=== PATIENT | male | born 1975 | race Caucasian/White ===

== ENCOUNTER 2022-11-04 06:03 | Inpatient (IN) ==
[2022-11-04 07:15] LABS: Basophils # (auto) 0.02 K/uL (0-0.2); Basophils % (auto) 0.4 %; Eosinophils # (auto) 0.07 K/uL (0-0.50); Eosinophils % (auto) 1.6 %; Hematocrit (blood only) 39.4 % (42.0-52.0); Immature Granulocytes # (auto) 0.02 K/uL (0.01-0.20); Immature Granulocytes % (auto) 0.4 %; Lymphocytes # (auto) 1.25 K/uL (1.2-3.4); Lymphocytes % (auto) 27.8 %; Mean Corpuscular Hgb Conc 35.5 g/dL (32.0-36.0); Mean Corpuscular Volume 81.7 fL (80.0-100.0); Mean Platelet Volume 9.6 fL (9.4-12.4); Monocytes # (auto) 0.42 K/uL (0.11-0.59); Monocytes % (auto) 9.4 %; Neutrophils # (auto) 2.71 K/uL (1.40-6.50); Neutrophils % (auto) 60.4 %; Platelet Count 165 K/uL (130-400); RDW Coefficient of Variation 12.7 % (11.5-14.5); RDW Standard Deviation 37.5 fL (36.4-46.3); Red Blood Count 4.82 M/uL (4.70-6.10); White Blood Count 4.49 K/ul (4.8-10.8)
[2022-11-04 07:17] LABS: Albumin Globulin Ratio 1.4 (0.9-2); BUN Creatinine Ratio 14.7 (10-20); Bilirubin,Total 0.4 mg/dl (0.2-1.0); Calcium 9.3 mg/dl (8.6-10.3); Creatinine Clr Calc Pharmacy 97.3 ml/min; Est GFR (Non-African American) 87.1 ml/min; Globulin 2.8 gm/dl (2.5-4.0); Potassium 4.2 mmol/L (3.5-5.1); Total Protein 6.8 gm/dl (6.0-8.3)
--- NOTE | 2022-11-04 07:20 | Emergency Department Note ---
History of Present Illness General Chief complaint: Chest Pain Stated complaint: CHEST PAIN Time Seen by Provider: 11/04/22 07:03 History of Present Illness Maximum Pain Intensity: 3 47-year-old male with no significant past medical history presents emergency department for evaluation of chest pain. Patient states he was woken from sleep around midnight last evening with central chest pain. He describes it as a pressure, "heat" feeling in his chest. He states it did radiate down his left arm. It has since been intermittent in nature with episodes lasting from 2 to 30 minutes. He reports a history of heartburn and thought it was secondary to this. He took Tums and drink a glass of cold water which usually resolves his symptoms but had no improvement prompting evaluation. There are no alleviating or exacerbating symptoms. It is not related to exertion or positional changes. It is not pleuritic in nature. He denies associated shortness of breath, nausea/vomiting, abdominal pain. Denies recent cold-like symptoms including fever/chills, cough. Denies history of blood clots, recent travel/prolonged immobilization, lower extremity swelling, calf pain. He has been taking a lot of ibuprofen lately due to current sciatica flare. He denies previous personal cardiac history but notes family history of ND. Denies history of known hypertension or hyperlipidemia. He states his pain is currently subsided. Home Medications Medication Instructions Recorded Confirmed Type ibuprofen 200 mg tablet (Advil) 400 mg PO Q6H PRN Pain 11/04/22 11/04/22 History Allergies Allergy/AdvReac Type Severity Reaction Status Date / Time No Known Allergies Allergy Unverified 11/04/22 06:52 Past Med/Surg History Medical History (Updated 11/04/22 @ 12:24 by Vanessa Watkins PA-C) Acute ND Atherogenic dyslipidemia Benign essential hypertension Coronary artery disease Marijuana user Social History Smoking Status: Current some day smoker Hx Alcohol Use: Yes Alcohol type: beer Hx Substance Use: Yes Last Used Substance: Hours (ago) Last Used Substance Other:: Last night Communication Ability: Effective Scout Executive Required: No Beliefs That Will Affect Care: None Current Living Situation: Spouse Other Information That Helps Us Care for You: No Feels Safe at Home: Yes Safety Concerns: Feels Safe At This Time Assistive Devices: Glasses Physical Exam Vital Signs Vital Signs - 24 hr 11/04/22 06:07 11/04/22 06:25 11/04/22 06:23 Temperature 36.8 C Temperature Source Temporal Artery Scan Pulse Rate 70 67 67 Pulse Rate from SpO2 Sensor Respiratory Rate 20 15 Respiratory Effort / Characteristics Non-Labored Respiratory Depth Normal Blood Pressure 158/98 H Blood Pressure Mean 118 Pulse Oximetry 98 Oxygen Delivery Method Room Air Sepsis Recent Fever Within 48 Hours No Sepsis New/Unexplained Change in Mental Status N/A Sepsis Action Taken by Nursing No Action Required 11/04/22 06:28 11/04/22 06:30 11/04/22 07:40 Temperature Temperature Source Pulse Rate 65 58 L 79 Pulse Rate from SpO2 Sensor 59 L Respiratory Rate 21 20 19 Respiratory Effort / Characteristics Respiratory Depth Blood Pressure 175/111 H 169/106 H 147/110 H Blood Pressure Mean 132 127 122 Pulse Oximetry 96 99 97 Oxygen Delivery Method Room Air Room Air Room Air Sepsis Recent Fever Within 48 Hours Sepsis New/Unexplained Change in Mental Status Sepsis Action Taken by Nursing 11/04/22 07:00 11/04/22 07:00 11/04/22 07:30 Temperature Temperature Source Pulse Rate 56 L Pulse Rate from SpO2 Sensor 56 L Respiratory Rate 13 Respiratory Effort / Characteristics Respiratory Depth Blood Pressure 156/102 H 147/110 H Blood Pressure Mean 112 127 Pulse Oximetry 97 Oxygen Delivery Method Sepsis Recent Fever Within 48 Hours Sepsis New/Unexplained Change in Mental Status Sepsis Action Taken by Nursing 11/04/22 07:30 11/04/22 08:00 11/04/22 08:00 Temperature Temperature Source Pulse Rate 53 L 59 L Pulse Rate from SpO2 Sensor 53 L 59 L Respiratory Rate 11 L 14 Respiratory Effort / Characteristics Respiratory Depth Blood Pressure 172/116 H Blood Pressure Mean 142 Pulse Oximetry 96 99 Oxygen Delivery Method Sepsis Recent Fever Within 48 Hours Sepsis New/Unexplained Change in Mental Status Sepsis Action Taken by Nursing 11/04/22 08:22 11/04/22 08:22 11/04/22 08:27 Temperature Temperature Source Pulse Rate 65 53 L Pulse Rate from SpO2 Sensor 67 54 L Respiratory Rate 24 11 L Respiratory Effort / Characteristics Respiratory Depth Blood Pressure 152/96 H Blood Pressure Mean 117 Pulse Oximetry 100 99 Oxygen Delivery Method Sepsis Recent Fever Within 48 Hours Sepsis New/Unexplained Change in Mental Status Sepsis Action Taken by Nursing 11/04/22 08:27 11/04/22 08:30 07/01/23 08:30 Temperature Temperature Source Pulse Rate 56 L Pulse Rate from SpO2 Sensor 56 L Respiratory Rate 18 Respiratory Effort / Characteristics Respiratory Depth Blood Pressure 139/89 137/93 Blood Pressure Mean 97 103 Pulse Oximetry 99 Oxygen Delivery Method Sepsis Recent Fever Within 48 Hours Sepsis New/Unexplained Change in Mental Status Sepsis Action Taken by Nursing Constitutional: alert and oriented x3. no acute distress. HEENT: normocephalic, atraumatic. normal conjunctiva.PERRLA. EOM's grossly intact. TMs pearly saab without effusion. Pharynx pink without exudate. Tonsils nonenlarged. Mucus membranes moist Neck: neck is supple, nontender. Respiratory: lungs are clear to auscultation without wheezes, rhonchi, or rales bilaterally. equal chest rise. normal respiratory effort, no accessory muscle use. Cardiovascular: normal heart sounds without murmur. regular rate and rhythm. GI: abdomen is soft, nontender. No palpable masses. No rebound tenderness or guarding. MSK: Moves all 4 extremities spontaneously Peripheral vascular: extremities warm and well perfused with palpable pulses. No peripheral edema Psych:appropriate mood and affect. Course Administered Medications Sodium Chloride (Nss 1000ml) 1,000 mls @ 75 mls/hr IV .[id number] [facility] Stop: 12/04/22 09:59 Last Admin: 11/04/22 11:34 Dose: 75 mls/hr Documented By: MARYANN Miscellaneous (Icu Protocol For Hyperglycemia) 1 each N/A ACHS [facility] Stop: 11/06/22 11:29 Last Admin: 11/04/22 11:34 Dose: Not Given Documented By: MARYANN Nitroglycerin (Nitroglycerin Sl 0.4 Mg/Tab Tab) 0.4 mg SL Q5M PRN PRN Reason: Chest Pain Stop: 12/04/22 08:06 Last Admin: 11/04/22 08:22 Dose: 0.4 mg Documented By: Admin: 11/04/22 08:12 Dose: 0.4 mg Documented By: Admin: 11/04/22 08:07 Dose: 0.4 mg Documented By: RUBEN Discontinued Medications Aspirin (Aspirin 81 Mg Chew) 324 mg PO NOW STA Stop: 11/04/22 07:42 Last Admin: 11/04/22 07:48 Dose: 324 mg Documented By: RUBEN Atropine Sulfate (Atropine Sulfate 0.1 Mg/Ml 10ml Syr) Confirm Administered Dose 1 mg IV .[facility] Stop: 11/04/22 08:56 Last Admin: 11/04/22 10:31 Dose: Not Given Documented By: MARYANN Fentanyl Citrate (Fentanyl Citrate Pf 100 Mcg/2 Ml Vial) Confirm Administered Dose 100 mcg .ROUTE .[facility] Stop: 11/04/22 08:40 Last Admin: 11/04/22 10:31 Dose: Not Given Documented By: MARYANN Heparin Sodium (Porcine) (Heparin (Porcine) 1000 Unit/Ml 10 Ml (Turret Press Operator Use Only)) Confirm Administered Dose 10,000 units .ROUTE .[facility] Stop: 11/04/22 08:39 Last Admin: 11/04/22 10:30 Dose: Not Given Documented By: MARYANN Heparin Sodium/Sodium Chloride (Heparin In Nss Infusion 1000 Unit/500 Ml (2 U/Ml) Bag) Confirm Administered Dose 4,000 units IV .[facility] Stop: 11/04/22 08:40 Last Admin: 11/04/22 10:31 Dose: Not Given Documented By: MARYANN Midazolam HCl (Midazolam Hcl 1 Mg/Ml 2ml Vial) Confirm Administered Dose 2 mg .ROUTE .[facility] Stop: 11/04/22 08:39 Last Admin: 11/04/22 10:30 Dose: Not Given Documented By: MARYANN Morphine Sulfate (Morphine Sulfate 2 Mg/Ml Carp) 2 mg IV NOW STA Stop: 11/04/22 08:16 Last Admin: 11/04/22 08:21 Dose: 2 mg Documented By: EMMETT Morphine Sulfate (Morphine Sulfate 2 Mg/Ml Carp) 2 mg IV NOW STA Stop: 11/04/22 08:24 Last Admin: 11/04/22 08:23 Dose: 2 mg Documented By: RUBEN Nicardipine HCl (Nicardipine Hcl Inj 2.5 Mg/Ml 10 Ml Amp) Confirm Administered Dose 25 mg .ROUTE .[facility] Stop: 11/04/22 08:39 Last Admin: 11/04/22 10:31 Dose: Not Given Documented By: MARYANN Nitroglycerin/Dextrose (Nitroglycerin/D5w 100mcg/Ml 20ml Syr) Confirm Administered Dose 2,000 mcg .ROUTE .[facility] Stop: 11/04/22 08:40 Last Admin: 11/04/22 10:31 Dose: Not Given Documented By: MARYANN Ticagrelor (Ticagrelor 90 Mg Tab) Confirm Administered Dose 180 mg .ROUTE .[facility]- [facility] ONE Stop: 11/04/22 09:16 Last Admin: 11/04/22 09:43 Dose: 180 mg Documented By: GAVINO Medical Decision Making Differential Diagnosis Cardiac ischemia, aortic dissection, pulmonary embolism, pneumothorax, pneumonia, pericarditis, myocarditis, esophageal rupture, GERD, cholecystitis, pancreatitis, musculoskeletal, as well as other pathologies. Laboratory Data Attestation: I reviewed the patient's lab results. 11/04/22 06:30 11/04/22 06:30 Lab Results 11/04/22 11/04/22 11/04/22 Range/Units 06:30 06:30 06:30 WBC 4.49 L (4.8-10.8) K/ul RBC 4.82 (4.70-6.10) M/uL Hgb 14.0 (14.0-18.0) g/dl Hct 39.4 L (42.0-52.0) % MCV 81.7 (80.0-100.0) fL MCH 29.0 (25.0-34.0) pg MCHC 35.5 (32.0-36.0) g/dL RDW Std Deviation 37.5 (36.4-46.3) fL RDW Coeff of Felecia 12.7 (11.5-14.5) % Plt Count 165 (130-400) K/uL MPV 9.6 (9.4-12.4) fL Immature Gran % (Auto) 0.4 % Neut % (Auto) 60.4 % Lymph % (Auto) 27.8 % Andrews % (Auto) 9.4 % Eos % (Auto) 1.6 % Baso % (Auto) 0.4 % Neut # (Auto) 2.71 (1.40-6.50) K/uL Lymph # (Auto) 1.25 (1.2-3.4) K/uL Andrews # (Auto) 0.42 (0.11-0.59) K/uL Eos # (Auto) 0.07 (0-0.50) K/uL Baso # (Auto) 0.02 (0-0.2) K/uL Immature Gran # (Auto) 0.02 (0.01-0.20) K/uL PT 10.7 (9.0-12.0) Seconds INR 1.0 (0.9-1.1) APTT 29.9 (21.0-31.0) Seconds PTT Ratio 1.1 Activ Coag Time Kaolin (94-140) SECONDS Sodium 138 (136-145) mmol/L Potassium 4.2 (3.5-5.1) mmol/L Chloride 107 (98-107) mmol/L Carbon Dioxide 26 (21-32) mmol/L Anion Gap 5 (3-11) BUN 15 (6-23) mg/dl Creatinine 1.02 (0.6-1.4) mg/dl Est Cr Clr Drug Dosing 97.3 ml/min Est GFR ( Amer) 101.0 ml/min Est GFR (Non-Af Amer) 87.1 ml/min BUN/Creatinine Ratio 14.7 (10-20) Glucose 104 H (70-99(Fasting)) mg/dl Calcium 9.3 (8.6-10.3) mg/dl Total Bilirubin 0.4 (0.2-1.0) mg/dl AST 17 (13-39) U/L ALT 15 (7-52) U/L Alkaline Phosphatase 60 (34-104) U/L Troponin I High Sens 50.4 H* (0-20) pg/ml Total Protein 6.8 (6.0-8.3) gm/dl Albumin 4.0 (3.4-5.0) gm/dl Globulin 2.8 (2.5-4.0) gm/dl Albumin/Globulin Ratio 1.4 (0.9-2) SARS-CoV-2, RNA, NAAT (NEGATIVE) 11/04/22 11/04/22 11/04/22 Range/Units 08:25 09:05 09:30 WBC (4.8-10.8) K/ul RBC (4.70-6.10) M/uL Hgb (14.0-18.0) g/dl Hct (42.0-52.0) % MCV (80.0-100.0) fL MCH (25.0-34.0) pg MCHC (32.0-36.0) g/dL RDW Std Deviation (36.4-46.3) fL RDW Coeff of Felecia (11.5-14.5) % Plt Count (130-400) K/uL MPV (9.4-12.4) fL Immature Gran % (Auto) % Neut % (Auto) % Lymph % (Auto) % Andrews % (Auto) % Eos % (Auto) % Baso % (Auto) % Neut # (Auto) (1.40-6.50) K/uL Lymph # (Auto) (1.2-3.4) K/uL Andrews # (Auto) (0.11-0.59) K/uL Eos # (Auto) (0-0.50) K/uL Baso # (Auto) (0-0.2) K/uL Immature Gran # (Auto) (0.01-0.20) K/uL PT (9.0-12.0) Seconds INR (0.9-1.1) APTT (21.0-31.0) Seconds PTT Ratio Activ Coag Time Kaolin 360 H 233 H (94-140) SECONDS Sodium (136-145) mmol/L Potassium (3.5-5.1) mmol/L Chloride (98-107) mmol/L Carbon Dioxide (21-32) mmol/L Anion Gap (3-11) BUN (6-23) mg/dl Creatinine (0.6-1.4) mg/dl Est Cr Clr Drug Dosing ml/min Est GFR ( Amer) ml/min Est GFR (Non-Af Amer) ml/min BUN/Creatinine Ratio (10-20) Glucose (70-99(Fasting)) mg/dl Calcium (8.6-10.3) mg/dl Total Bilirubin (0.2-1.0) mg/dl AST (13-39) U/L ALT (7-52) U/L Alkaline Phosphatase (34-104) U/L Troponin I High Sens (0-20) pg/ml Total Protein (6.0-8.3) gm/dl Albumin (3.4-5.0) gm/dl Globulin (2.5-4.0) gm/dl Albumin/Globulin Ratio (0.9-2) SARS-CoV-2, RNA, NAAT NEGATIVE (NEGATIVE) Imaging Data My Impression: CXR per my interpretation without focal consolidation, pleural effusion, or pneumothorax Radiologist's Impression: Chest X-Ray 11/04/22 06:53 XR chest 1V not portable HISTORY: Chest pain, nonspecific COMPARISON: None. FINDINGS: The lungs are clear. Cardiac silhouette is normal in size. No pleural effusions. No pneumothorax. IMPRESSION: No acute process. ACT 112: Negative or not required by law. Electronically signed by: Juvenal Briones M.D. 11/04/2022 8:14 AM MDM Narrative 47-year-old male who presents emergency department for evaluation of substernal chest pain. Review of pertinent visits and past medical history performed. Vital signs in ED demonstrate hypertensive otherwise within normal limits, afebrile. EKG demonstrates normal sinus rhythm at a rate of 58 bpm without e vidence of ischemic changes, ST abnormalities. No previous to compare. IV access was established and labs were obtained. CBC without leukocytosis or acute anemia. CMP without significant electrolyte abnormalities. Initial high- sensitivity troponin elevated at 50. Chest x-ray unremarkable. On initial exam, patient is nontoxic-appearing in no acute distress. No respiratory distress, maintaining normal O2 saturations on room air. Lungs CTA. Abdomen is benign. Remainder physical exam unremarkable. Patient was placed on cardiac monitoring and at time my interpretation demonstrates normal sinus rhythm at rate 66bpm. He declined need for pain medication initially. Upon initial reevaluation 745a, patient remains stable with mild return in symptoms. Rated 5/10. He was given dose of 324mg chewed aspirin. Repeat EKG performed and demonstrates no new changes and no evidence of ischemic ST segment changes. He was updated on all exam findings and given elevated troponin I recommended admission to hospital for further cardiac work-up. Patient was agreeable to this. Case was discussed with hospitalist for admission. Reevaluation 808: patient reports pain is increasing in severity now 8/10 "worse than it's ever been". Continues substernally. Vital signs within normal limits. ED attending, Dr. Abraham to evaluate patient at bedside with me. He was ordered sublingual Nitroglycerin. Dr. Abraham consulted cook dessert refractive surgeon Dr. Cervantes who agreed to come in and evaluate patient at bedside. Reeval 812a: pain not improved with nitroglycerin. He was given additional dose and ordered 2mg morphine. Vital signs demonstrate hypertensive. He remained hemodynamically stable. Repeat EGK demonstrates now ST elevations in inferior leads. Heart alert was called although cook dessert Dr. Cervantes was already on way in. In interim, while waiting for cardiology team, patient did have improved chest pain and senior environmental consultant did demonstrate resolution of ST elevations. Patient will be going to cardiac fish hatchery laborer for intervention. Impression & Plan Acute ND Discharge Plan Visit Data Chief Complaint: Chest Pain Stated Complaint: CHEST PAIN ED Provider: Nixon Abraham ED Midlevel Provider: Vanessa Watkins Discharge Problem: Acute ND Patient Disposition: Admitted As Inpatient Discharge Instructions Interventions: ED Discharge Assessment Last Done: 11/04/22 08:45
[2022-11-04 07:39] LABS: Troponin I High Sensitivity 50.4 pg/ml (0-20)
[2022-11-04] MEDS ORDERED: ASPIRIN 81 MG CHEW PO STA (07:41)
[2022-11-04 07:48] LABS: Partial Thromboplastin Ratio 1.1; Partial Thromboplastin Time 29.9 Seconds (21.0-31.0); Prothrombin Time 10.7 Seconds (9.0-12.0)
[2022-11-04] MEDS: NITROGLYCERIN SL 0.4 MG/TAB TAB SL PRN ×3 (08:07→08:22)
[2022-11-04] MEDS ORDERED: MoRPHine SULFATE 2 MG/ML CARP IV STA ×2 (08:15→08:23)
--- NOTE | 2022-11-04 08:15 | XRay Report ---
XR chest 1V not portable HISTORY: Chest pain, nonspecific COMPARISON: None. FINDINGS: The lungs are clear. Cardiac silhouette is normal in size. No pleural effusions. No pneumot horax. IMPRESSION: No acute process. ACT 112: Negative or not required by law. Electronically signed by: Juvenal Briones M.D. 11/04/2022 8:14 AM
[2022-11-04] MEDS ORDERED: MIDAZOLAM HCL 1 MG/ML 2ML VIAL ONE (08:38)
[2022-11-04] MEDS ORDERED: niCARdipine HCL INJ 2.5 MG/ML 10 ML AMP ONE (08:38)
[2022-11-04] MEDS ORDERED: HEPARIN (PORCINE) 1000 UNIT/ML 10 ML (CATH LAB USE ONLY) ONE (08:38)
[2022-11-04] MEDS ORDERED: NITROGLYCERIN/D5W 100MCG/ML 20ML SYR ONE (08:39)
[2022-11-04] MEDS ORDERED: fentaNYL citrate PF 100 MCG/2 ML VIAL ONE (08:39)
[2022-11-04] MEDS ORDERED: ATROPINE SULFATE 0.1 MG/ML 10ML SYR IV ONE (08:55)
--- NOTE | 2022-11-04 09:11 | Emergency Department Note ---
ED Visit Note I saw this patient in conjunction with Vanessa, my PA. His first 2 EKGs did not show any definite ischemic changes, I was concerned that his T waves looked a little hyperdynamic potentially but there is no old EKG for comparison his pain had resolved. There is no significant change from EKG#1to EKG #2. troponin was elevated at 50 so we consulted medicine for admission. At that point he was feeling well but then he started having chest pain again I went and evaluated him he said it was 8 out of 10 and much more severe, I did give him nitrogl ycerin and ordered up to 3 and I called talk to Dr. Cervantes who is on for heart alert/cardiology. He said he would come by and see the patient. The repeat EKG did show ST segment elevations inferiorly with reciprocal changes consistent with inferior MO/STEMI that were clearly different than the first 2 EKGs. in light of this, I did also call the heart alert at that point but the senior clinical study manager was already on the way in. The patient did receive 3 nitros he also received morphine 2 mg IV x2, his pressure tolerated this well. The cath team and Dr. Baez did promptly arrive. In the interim the patient started feeling better and on the monitor his ST segments came down. He will be going to the Discharging Machine Operator for intervention and likely stent. Total critical care time30 minutes Due to the patient's chest pain, evolutionary changes on EKG now showing a STEMI, discussion with the senior clinical study manager and the hospitalist, frequent reevaluation medications, I have personally spent greater than 30 minutes of critical care time in the direct management of this patient. This includes bedside care, interpretation of diagnostic studies, and testing, discussion with consultants, patient, and family members, and other required patient management activities. This 30 minutes is in excess of all separately billable procedures. Diagnosis Acute STEMI .
[2022-11-04] MEDS ORDERED: TICAGRELOR 90 MG TAB ONE (09:15)
[2022-11-04] MEDS ORDERED: ATROPINE SULFATE 0.1 MG/ML 10ML SYR IV PRN (09:48)
[2022-11-04] MEDS ORDERED: ONDANSETRON INJ 2 MG/ML 2 ML VIAL IV PRN (09:48)
--- NOTE | 2022-11-04 10:10 | Pre Anesthesia Assessment ---
Date of Service November 04, 2022 Pre Sedation Assessment Vital Signs Temp Pulse Resp BP Pulse Ox O2 Del Method 11/04/22 08:30 56 L 18 99 11/04/22 08:30 137/93 11/04/22 08:27 139/89 11/04/22 08:27 53 L 11 L 99 11/04/22 08:22 65 24 100 11/04/22 08:22 152/96 H 11/04/22 08:00 59 L 14 99 11/04/22 08:00 172/116 H 11/04/22 07:30 53 L 11 L 96 11/04/22 07:30 147/110 H 11/04/22 07:00 56 L 13 97 11/04/22 07:00 156/102 H 11/04/22 07:40 79 19 147/110 H 97 Room Air 11/04/22 06:30 58 L 20 169/106 H 99 Room Air 11/04/22 06:28 65 21 175/111 H 96 Room Air 11/04/22 06:23 67 15 11/04/22 06:25 67 11/04/22 06:07 36.8 C 70 20 158/98 H 98 Room Air Cardiovascular RRR, no murmur, no edema Respiratory normal respiratory effort, lungs clear to auscultation Pre-Sedation Airway Assessment Smoking Status: Current some day smoker mallampati 2 ASA 4 Notes The planned sedation has been discussed with the patient. Informed Consent was obtained. I have identified the patient, determined the appropriateness of sedation and have assessed the patient immediately prior to the procedure. All medicine(s) and interventions are by my order.
--- NOTE | 2022-11-04 10:13 | Post Anesthesia Assessment ---
Date of Service November 04, 2022 Post Sedation Assessment Vital Signs Temp Pulse Resp BP Pulse Ox O2 Del Method 11/04/22 08:30 56 L 18 99 11/04/22 08:30 137/93 11/04/22 08:27 139/89 11/04/22 08:27 53 L 11 L 99 11/04/22 08:22 65 24 100 11/04/22 08:22 152/96 H 11/04/22 08:00 59 L 14 99 11/04/22 08:00 172/116 H 11/04/22 07:30 53 L 11 L 96 11/04/22 07:30 147/110 H 11/04/22 07:00 56 L 13 97 11/04/22 07:00 156/102 H 11/04/22 07:40 79 19 147/110 H 97 Room Air 11/04/22 06:30 58 L 20 169/106 H 99 Room Air 11/04/22 06:28 65 21 175/111 H 96 Room Air 11/04/22 06:23 67 15 11/04/22 06:25 67 11/04/22 06:07 36.8 C 70 20 158/98 H 98 Room Air Recovery Score Activity: Moves 4 extremities Respiration: Deep Breath/Cough Circulation: +/-20% PreAnes Value Consciousness: Fully Awake Oxygen Saturation: > 92% On Room Air Discharge Sedation Level of Care: Fast Track Phase II Post Sedation Plan On clinical assessment, the patient appears to have tolerated the sedation without complications. Patient is recovering as anticipated. Patient will continue to be monitored by nursing and may be discharged when sedation discharge criteria are met per below protocol. Upon Completions of procedure up to 15 minutes continue every 5 minute vital signs and the P.A.R. score; then discharge to a Phase I or Fast Track to Phase II per the following guidelines: * Discharge Patient to appropriate Phase II area if PAR is 8 or greater or return to pre- procedure baseline. The post - procedure orders will be as directed. * If PAR score is less than 8 or not return to pre-procedure baseline then patient will follow Phase I monitoring till PAR is reached for Phase II. The Phase I may be done in procedure room or may call to secure a Phase I area. * If naloxone or flumazenil are used for reversal, hold in Phase I for continued monitoring from when last reversal dose was given for a minimum of 60 minutes or longer pending the nurse and/or physician discretion of patient condition before discharge to Phase II. Please call the Sedation Physician to re-evaluate and complete post-note for discharge to Phase II area. Do NOT discharge from procedure sedation or Phase 1 until post- sedation evaluation note is complete by procedure /sedation MD Sedation Discharge Instructions to be given to the patient at discharge to home. [facility] Procedure Codes (Charges) Indication for Procedure Indication for procedure: STEMI Sedation/Anesthesia Procedure 1: Sedation/Anesthesia: 22101 Mod Sedation by the same physician;Init15 Min Child Age 5 & Up (initial 15 min, start 0854) Total Sedation Time (minutes): 44 Procedure 2: Sedation/Anesthesia: 99129 Mod Sedation by the same physician; Ea [id number] Minutes (additional 29 min, end 0938) Total Sedation Time (minutes): 44
--- NOTE | 2022-11-04 10:14 | History & Physical Report ---
Date of Service November 04, 2022 Assessment & Plan (1) Acute GA: Plan: Patient presents to the hospital on account of chest pain/pressure Initial EKGs did not show any changes however the third EKG showed elevated of ST in inferior leads. He was emergently taken to the cardiac cath and subsequently stented x2 LAD and RCA. 2D echo has been ordered, result pending Appreciate cardiology Patient was monitored in the ICU. Patient does not have a PCP and 1 will be arranged upon discharge. Plan Continue hospitalization Full code DVT prophylaxis SCDs Admission and Anticipated Discharge Date Admission Date: November 04, 2022 History of Present Illness Chief Complaint: Chest pain Primary Care Provider: NO PCP Is a 47-year-old male with no significant past medical history who presents to the hospital today on account of chest pain/pressure. According to the patient initially the pressure radiated to left shoulder. Although when I saw him in the emergency department he said the pain no longer radiated reports there was a constant pressure on his chest. Initial 2 EKGs did not show any ST elevation or changes however initial troponin was 50. The in the emergency department, when I was in the room he said the pressure got worse and a repeat EKG was ordered which showed ST elevation in the inferior leads. Heart code was called and cardiology was notified. Patient was taken to the cardiac cath for emergency catheterization and subsequent drug-eluting stent x2. He will be taken to ICU post cath. Of note, patient does not have a primary care doctor and has not seen a doctor in a long time. Vital signs currently stable, blood pressure 137/93, saturating well on room air. Allergies Allergy/AdvReac Type Severity Reaction Status Date / Time No Known Allergies Allergy Unverified 11/04/22 06:52 Home Medications Medication Instructions Recorded Confirmed Type ibuprofen 200 mg tablet (Advil) 400 mg PO Q6H PRN Pain 11/04/22 11/04/22 History Past Med/Surg History Social History Smoking Status: Current some day smoker Feels Safe at Home: Yes Review of Systems Review of Systems: All systems reviewed are negative, apart from the ones contained in the history. Physical Exam Physical Exam: The patient is awake, alert and oriented 3, well developed and well nourished, normocephalic and atraumatic, lying in bed and in no acute distress. HEENT--PERRL, EOMI, mucous membranes and oropharynx mildly dry Neck--supple. No JVD. No bruits. Thyroid normal, trachea midline, no adenopa thy. Heart--normal S1 and S2. No murmurs, rubs or gallops. Lungs--clear bilaterally, no respiratory distress, no accessory muscle use. Abdomen--normal bowel sounds and soft. Mild epigastric and left sided abdominal pain Extremities--no cyanosis or clubbing. No edema. Dermatologic--normal skin turgor, normal color, no abnormal lymph nodes, no rash. Neurologic--cranial nerves II through XII grossly intact. Rheumatologic--normal range of motion. Psychiatric--normal affect. Results & Data Results & Data Vital Signs (Past 12 Hours) Vital Signs Temp Pulse Resp BP Pulse Ox O2 Del Method 11/04/22 08:30 56 L 18 99 11/04/22 08:30 137/93 11/04/22 08:27 139/89 11/04/22 08:27 53 L 11 L 99 11/04/22 08:22 65 24 100 11/04/22 08:22 152/96 H 11/04/22 08:00 59 L 14 99 11/04/22 08:00 172/116 H 11/04/22 07:30 53 L 11 L 96 11/04/22 07:30 147/110 H 11/04/22 07:00 56 L 13 97 11/04/22 07:00 156/102 H 11/04/22 07:40 79 19 147/110 H 97 Room Air 11/04/22 06:30 58 L 20 169/106 H 99 Room Air 11/04/22 06:28 65 21 175/111 H 96 Room Air 11/04/22 06:23 67 15 11/04/22 06:25 67 11/04/22 06:07 98.2 F 70 20 158/98 H 98 Room Air Code Status & VTE Plan VTE Prophylaxis Plan VTE Prophylaxis will be ordered: Yes PG Care Time/CCT Total # of Minutes Spent Total Time Spent with Patient: Total time spent is greater than 50% in coordination of care (as documented) at patient's floor/unit and/or counseling patient: Coding Level of Care Code 40831 INT INP/OBS CARE 3/75MIN Diagnoses Acute GA I21.9 Time Spent (min) 75
--- NOTE | 2022-11-04 10:14 | Cardiac Catheterization ---
ACC Data: Model Builder Cardiac Status Clinical evaluation leading to the procedure CAD Presenation: STEMI Anginal Classification: CCS IV Heart Failure: No Cardiogenic Shock within 24 Hours: No Cardiac Arrest within 24 Hours: No Imaging Studies Past 6 Months: No Stress Studies Past 6 Months: No STEMI OR Non-STEMI Symptom Onset Date: 11/04/22 Symptom Onset Time: 08:13 Thrombolytics: No Coronary Anatomy Dominant: Right Left Main (% Stenosis): Normal LAD (% Stenosis): Proximal (50 to 70%) and Distal (Apical 95 to 99%) D1 (% Stenosis): Ostial (90%, small vessel) D2 (% Stenosis): Normal Circumflex (% Stenosis): Normal OM1 (% Stenosis): Proximal (70 to 80%) OM2 (% Stenosis): Proximal (95 to 99%, culprit lesion) RCA (% Stenosis): Proximal (40%), Mid (Diffuse less than 30%) and Distal (Focal 40 to 50%) R PDA (% Stenosis): Proximal (Tandem less than 40%) R PL1 (% Stenosis): Normal Diagnostic Physicians Name: Sahil Cervantes MD, PhD Closure Device Percutaneous Entry Location: Radial Closure Device: Radial Band Recommendations: Medical Therapy and/or Counseling and PCI without planned CABG PCI Indication: PCI for STEMI - Stable First Noted: Subsequent EKG Date: 11/04/22 Subsequent EKG Time: 08:13 Subsequent EKG (Fourth EKG) Lesion Segment Name: OM 2 Culprit Artery: Yes Stenosis Prior to Rx (%): 95 to 99% Chronic Total Occlusion: No Pre-Procedure MAGALY Flow: 2 Previously Treated Lesion: No Lesion Complexity: Non-High/Non-C Lesion Length (mm): 20 Thrombus Present: Yes Bifurcation Lesion: No Guidewire Across Lesion: Yes Lesion #2 Segment Name: Proximal OM1 Culprit Artery: No Stenosis Prior to Rx (%): 75 to 80% Chronic Total Occlusion: No Pre-Procedure MAGALY Flow: 3 Previously Treated Lesion: No Lesion Complexity: Non-High/Non-C Lesion Length (mm): 15 Thrombus Present: No Bifurcation Lesion: No Guidewire Across Lesion: Yes Intraprocedure Events Significant Disection: No Perforation: No Cardiac Cath Procedure Full Procedure Date November 04, 2022 Pre-Procedure Diagnosis Pre-Procedure Diagnosis: STEMI AUC Score AUC Score: 09 Post-Procedure Diagnosis Post-Procedure Diagnosis: Severe CAD and Successful PCI Procedure(s) Performed Procedure(s) Performed: Coronary Angiography, Drug Eluting Stent and Fractional Flow [place] [employer] Machine Helper Sahil Cervantes MD, PhD Estimated Blood Loss Estimated Blood Loss: <10 ml Medication(s) Medication(s): Fentanyl, Heparin, Lidocaine 1%, Nicardipine, Nitroglycerin and Versed Summary of Findings Brief description: Patient was brought to the cardiac catheterization suite where he was shaved and prepped in a sterile fashion. Sedated using IV Versed and fentanyl. Soft tissues of the right wrist were anesthetized using 2 mL of 1% Xylocaine. The right radial artery was accessed using a modified Seldinger technique and a 6 [place] radial artery glide sheath was placed. Patient was provided anticoagulation with IV heparin and antispasmodics including nitroglycerin and nicardipine. All catheters were advanced and exchanged over a 0.035 J-tip wire. Note: On arrival to the cardiac catheterization suite the patient had very low level of residual chest pain. However, this worsened during the preparation time and there were noted ST elevations on the monitor. Right coronary angiography was performed in orthogonal views using a 6 [place] JR4 guide catheter. Left coronary angiography was performed in orthogonal views using a 6 [place] EBU 3.0 guide catheter. We proceeded immediately to PCI. A BMW universal guidewire was advanced through the guide catheter and positioned distally in the OM 1. A second BMW reversal guidewire was advanced and positioned distally in the OM 2. Predilatation of the lesion in the OM 2 was performed using a 2.0 x 12 mm trek balloon up to 14 fernando. The lesion was then stented using a 2.25 x 22 mm Nathan drug-eluting stent initially at 12 fernando with a second inflation up to 14 fernando. The stent balloon was then removed. Lesion in the OM1 was then stented using a 2.5 x 18 mm Nathan drug-eluting stent inflated initially at 12 fernando then 14 fernando and finally at 16 fernando. The stent balloon was then removed. Rotary Drier angiography was performed. The BMW universal guidewire in the OM 2 was removed. The OM1 stent was postdilated in the mid and proximal portions using a 2.75 x 12 mm NC sprinter inflated to 12 fernando and 14 fernando respectively. A 2.5 x 8 mm Divide drug-eluting stent was advanced over the guidewire and positioned with its proximal edge just within the distal portion of the original stent and extending its distal edge over the small residual portion of the lesion. This was then deployed at 12 fernando. The overlapped segment was then inflated to 16 fernando. Therefore the most distal diameter of the stent frame was 2.5 mm in the most proximal portion of the stent drain was 2.8 mm. After removal of the balloon, the guidewire was removed and final angiographic evaluation was performed in orthogonal views. We decided to proceed with IFR analysis of the proximal LAD lesion. The Doppler wire was advanced through the guide catheter and positioned with the transducer just distal to the catheter tip. Pressures were equalized. The wire was then advanced down the LAD and positioned with the transducer distal to the lesion. After normal saline flush, IFR was sampled 3 times and recorded. The wire was then removed and final angiographic evaluation was performed to ensure no complications of guidewire passage. The guide catheter was then removed. ACT was checked and additional heparin was provided to ensure therapeutic anticoagulation. Patient was then provided with Brilinta 180 mg p.o. The radial artery sheath was removed and hemostasis was obtained using the TR band. At this point patient was hemodynamically stable, asymptomatic, and with resolution of his EKG changes. He was then transported to the ICU for further work-up and management. This ended the case. Coronary angiography findings: LMT-large caliber vessel bifurcating into LAD and circumflex. Diffuse mild disease. LAD-large caliber and transapical. Gives a small branching first diagonal which has ostial 90% stenosis. Gives a large septal branch as well as many additional smaller septal branches. It gives a medium caliber branching second diagonal which has mild disease. The proximal LAD has focal lesion spanning the ostium of the first diagonal which appears 50 to 70% narrowed. The midportion has mild diffuse disease. The distal LAD has diffuse mild luminal irregularities and at the apex there is a focal 95 to 99% stenosis. LCx-this is large caliber and nondominant. Travels in the AV groove where it gives a large multi-branching OM1. There is a long eccentric lesion of 70 to 80% beginning just after the ostium. The mid AV groove vessel has no significant disease and then it provides a medium to large caliber multi b ranching OM 2. This has a proximal to mid long stenosis of up to 95 to 99%. There is MAGALY II flow distal to this lesion and this is the culprit vessel. After the OM to the distal AV groove circumflex becomes much smaller providing an atrial branch and terminating distally in the AV groove. RCA-medium to large caliber and dominant vessel. Proximal diffuse up to 40% narrowing. Mid vessel with mild diffuse less than 30% narrowing. Distally there is a focal 40 to 50% narrowing occurring just before the bifurcation. The RCA bifurcates into a large PDA which has tandem up to 40% stenosis and into the posterolateral branch which has mild luminal irregularities. PCI of OM1 and OM 2- There is 0% residual stenosis in the OM1 and the OM 2 post PCI There is no evidence of dissection or perforation post PCI in the OM1 or the OM 2. There is MAGALY-3 flow in the OM1 and OM 2 post PCI IFR analysis of the LAD- 0.92, 0.93, 0.93. Therefore, this lesion is not hemodynamically significant. MAGALY-3 flow post IFR analysis No evidence of dissection or perforation post IFR analysis Summary: 1. Severe multivessel coronary disease as described. Culprit for ST elevation VA is the OM 2. 2. Successful PCI with implantation of 1 long drug-eluting stent to the OM 2 as well as 2 overlapped drug-eluting stents in the OM 1. 3. Angiographically borderline but hemodynamically insignificant LAD stenosis by IFR analysis. 4. Patient will be on dual antiplatelet therapy using aspirin 81 mg daily and Brilinta 90 mg p.o. twice daily for up to 1 to 2 years. 5. Patient will be initiated on guideline directed medical therapy for secondary prevention of coronary disease including; high intensity statin therapy, beta-jaiden, plus or minus TERESA inhibitor/ARB as indicated. Hemodynamics Rest Ao:: 151/91 mmHg Final Ao: 134/78 mmHg LV: Not performed Recommendations Recommendations: Medical Therapy and/or Counseling and PCI without planned CABG Radiation Exposure (mGy) 2187 mGy, fluoroscopy time 11.0 minutes Contrast (mls) 205 mL Anesthesia 1 mg IV Versed, 50 mcg IV fentanyl (start time 0854, end time 0938) Procedural Complication(s) None Disposition ICU I attest to the content of the Intraoperative Record and any orders documented therein. Any exceptions are noted below. [facility] Card Cath Procedure Codes Cardiac Catheterization Procedure 1: Cardiovascular Cath Procedures: 04294 Coronaries Procedure 2: Cardiovascular Cath Procedures: 48017 (Doppler) Pressure Wire (LAD) Stenting Procedure 1: Cardiovascular Stent Procedures: 19484 Perc transluminal revascularization of acute sub/total occl, aMI (OM 2) Procedure 2: Cardiovascular Stent Procedures: 47165 Ea addl coronary artery, branch or graft: ANABEL SINGH LD (OM1) PG Care Time/CCT Total # of Minutes Spent Total Time Spent with Patient: Total time spent is greater than 50% in coordination of care (as documented) at patient's floor/unit and/or counseling patient:
[2022-11-04 10:54] LABS: Basophils # (auto) 0.02 K/uL (0-0.2); Basophils % (auto) 0.3 %; Eosinophils # (auto) 0.02 K/uL (0-0.50); Eosinophils % (auto) 0.3 %; Hematocrit (blood only) 39.3 % (42.0-52.0); Hemoglobin 14.3 g/dl (14.0-18.0); Immature Granulocytes # (auto) 0.02 K/uL (0.01-0.20); Immature Granulocytes % (auto) 0.3 %; Lymphocytes # (auto) 0.94 K/uL (1.2-3.4); Lymphocytes % (auto) 12.3 %; Mean Corpuscular Hemoglobin 29.6 pg (25.0-34.0); Mean Corpuscular Hgb Conc 36.4 g/dL (32.0-36.0); Mean Corpuscular Volume 81.4 fL (80.0-100.0); Mean Platelet Volume 9.6 fL (9.4-12.4); Monocytes # (auto) 0.44 K/uL (0.11-0.59); Monocytes % (auto) 5.7 %; Neutrophils # (auto) 6.23 K/uL (1.40-6.50); Neutrophils % (auto) 81.1 %; Platelet Count 168 K/uL (130-400); RDW Coefficient of Variation 12.7 % (11.5-14.5); RDW Standard Deviation 37.2 fL (36.4-46.3); Red Blood Count 4.83 M/uL (4.70-6.10); White Blood Count 7.67 K/ul (4.8-10.8)
[2022-11-04 11:08] LABS: Estimated Average Glucose 103 mg/dl; Hemoglobin A1C 5.2 % (4.5-5.6)
--- NOTE | 2022-11-04 11:13 | Cardiology Consultation ---
Date of Consultation November 04, 2022 Assessment & Plan (1) Coronary artery disease: Multivessel. Status post KS with PCI. Mild to moderate residual disease. Blood pressure and heart rate were above target. Guideline directed medical therapy initiated with metoprolol tartrate, aspirin, and atorvastatin. We will obtain an echocardiogram to evaluate for abnormalities in structure or function. We will check a lipid panel and hemoglobin A1c to evaluate for occult risk factors. Additional recommendations pending results. (2) Atherogenic dyslipidemia: Patient is considered high risk. High intensity statin therapy was initiated using a atorvastatin 40 mg daily. Target LDL reduction will be greater than or equal to 50% of untreated baseline LDL. Await LDL measurement. (3) Benign essential hypertension: Blood pressure very high while he was under stress. Improved post PCI. He has been initiated on beta-jaiden. We will add TERESA inhibitor or angiotensin receptor jaiden as indicated by blood pressure, renal function, and LVEF post KS. (4) Acute KS: Culprit lesion appeared to be the OM 2. This was stented with a long drug- eluting stent. He also had significant disease in the OM1 which was stented with 2 overlapped drug-eluting stents. He will be on dual antiplatelet therapy with aspirin 81 mg daily and Brilinta 90 mg p.o. twice daily for up to a year. If he has intolerance to the Brilinta or it is unaffordable then we will convert Brilinta to clopidogrel prior to discharge. He will remain in the ICU for 24 hours post PCI. Assuming that he has no complications, he will be appropriate for transfer to the PCU after that time. And would likely be appropriate for discharge at 48 hours of hospitalization. History of Present Illness Reason for Consultation: ST elevation KS Attending Physician: Imani Garcia MD History of Present Illness Pleasant 47-year-old gentleman who has no prior cardiac history presented to the emergency department with complain of intermittent substernal chest pressure. His initial EKG was performed at 0619 and showed sinus bradycardia. 2 additional EKGs were performed at 0724 and 0746 each showing sinus bradycardia. His chest discomfort continued to be intermittent and somewhat fleeting. However, he then had more severe and persistent chest pain with an EKG at [address] elevations in the inferior and lateral leads. A "heart alert" was called in on my arrival the patient continued with severe chest pain although it had improved somewhat with some treatment in the emergency department. After discussion with the patient I recommended to him that we undergo diagnostic coronary angiography plus or minus PCI as indicated. The risks, benefits, and alternatives of the procedure were discussed in detail with the patient. Risks include but are not limited to; , stroke, KS, renal failure, adverse drug reaction, infection, bleed, and need for emergent surgery. Patient's questions were answered in full. He voiced understanding and wished to proceed with catheterization. The consent was signed and is in the chart. This was also discussed with his Adele who is at the bedside. Patient was taken to the cardiac catheterization suite where he underwent co ronary angiography demonstrating multivessel coronary disease. However, culprit lesion was felt to be the near total occlusion in the obtuse marginal branch #2. He underwent stenting of this vessel with a long drug-eluting stent. We also treated the lesion in the larger OM1 branch using 2 overlapped drug-eluting stents. Finally, the LAD lesion was angiographically borderline and therefore we performed IFR analysis which demonstrated this was not a hemodynamically significant lesion. He has now been admitted to the ICU. He has no further chest pain. It was noted that his blood pressure was over 200 systolic on arrival to the Agricultural Commodities Inspector. This has improved post PCI and initiation of therapy. Patient tells me he has strong family history of premature coronary disease. He also has not seen a physician in more than a year since he relocated from [place]. He denies any tobacco use. Allergies Allergy/AdvReac Type Severity Reaction Status Date / Time No Known Allergies Allergy Unverified 11/04/22 06:52 Home Medications Medication Instructions Recorded Confirmed Type ibuprofen 200 mg tablet (Advil) 400 mg PO Q6H PRN Pain 11/04/22 11/04/22 History Patient History Social History Smoking Status: Current some day smoker Hx Alcohol Use: Yes Alcohol type: beer Hx Substance Use: Yes Last Used Substance: Hours (ago) Last Used Substance Other:: Last night Communication Ability: Effective Civil Geotechnical Engineer Required: No Beliefs That Will Affect Care: None Current Living Situation: Spouse Other Information That Helps Us Care for You: No Feels Safe at Home: Yes Safety Concerns: Feels Safe At This Time Assistive Devices: Glasses Review of Systems Review of Systems: Negative except as per HPI Physical Exam Constitutional: WD/WN, vitals as above Eyes: Extraocular muscles intact, sclera are anicteric ENMT: Oral mucosa is pink moist and intact Neck: No JVD, thyromegaly, or bruits Respiratory: Clear to auscultation bilaterally. No wheezing, rhonchi, or rales Cardiovascular: Regular rate and rhythm. S4 gallop. Do not appreciate any rubs or murmurs. Musculoskeletal: no cyanosis or clubbing, extremities motor strength 5/5 Neurologic: Cognition is intact. Speech is fluent. No focal deficits. No tremor. Psychiatric: A+Ox3, euthymic affect Results & Data Vital Signs (Past 12 Hours) Vital Signs Temp Pulse Pulse Resp BP BP Pulse Ox 11/04/22 10:30 59 L 12 122/85 95 11/04/22 10:15 62 18 134/83 96 11/04/22 10:00 36.5 C 66 14 135/86 99 11/04/22 08:30 56 L 18 99 11/04/22 08:30 137/93 11/04/22 08:27 139/89 11/04/22 08:27 53 L 11 L 99 11/04/22 08:22 65 24 100 11/04/22 08:22 152/96 H 11/04/22 08:00 59 L 14 99 11/04/22 08:00 172/116 H 11/04/22 07:30 53 L 11 L 96 11/04/22 07:30 147/110 H 11/04/22 07:00 56 L 13 97 11/04/22 07:00 156/102 H 11/04/22 07:40 79 19 147/110 H 97 11/04/22 06:30 58 L 20 169/106 H 99 11/04/22 06:28 65 21 175/111 H 96 11/04/22 06:23 67 15 11/04/22 06:25 67 11/04/22 06:07 36.8 C 70 20 158/98 H 98 O2 Del Method 11/04/22 10:30 Room Air 11/04/22 10:15 Room Air 11/04/22 10:00 Room Air 11/04/22 08:30 11/04/22 08:30 11/04/22 08:27 11/04/22 08:27 11/04/22 08:22 07/01/23 08:22 11/04/22 08:00 11/04/22 08:00 11/04/22 07:30 11/04/22 07:30 11/04/22 07:00 11/04/22 07:00 11/04/22 07:40 Room Air 11/04/22 06:30 Room Air 11/04/22 06:28 Room Air 11/04/22 06:23 11/04/22 06:25 11/04/22 06:07 Room Air PG Care Time/CCT Total # of Minutes Spent Total Time Spent with Patient: Total time spent is greater than 50% in coordination of care (as documented) at patient's floor/unit and/or counseling patient: 74 minutes of critical care time spent in initial evaluation, examination, review of records, discussion with the patient, his spouse, and the care team. Additionally, this includes time for formulation and implementation of a plan of care and all associated documentation. This time is exclusive of time spent for the procedure. Coding Level of Care Code 83496 CRITICAL CARE 1ST 30-74M Diagnoses Coronary artery disease I25.10 Atherogenic dyslipidemia E78.5 Benign essential hypertension I10 Acute KS I21.9 Time Spent (min) 74
[2022-11-04] MEDS: SODIUM CHLORIDE 0.9% 1000ML 1,000 ML IV SCH (11:34)
[2022-11-04] MEDS: ICU Protocol for HYPERglycemia SCH ×3 (11:34→20:05)
--- NOTE | 2022-11-04 11:35 | Critical Care Consultation ---
Date of Consultation November 04, 2022 Assessment & Plan (1) Benign essential hypertension: (2) Atherogenic dyslipidemia: (3) Coronary artery disease: (4) Acute IN: (5) Marijuana user: Plan Attending: Dr. Ingram Impression: 47-year-old male who presented with chest pain and found to have acute IN with multivessel disease. Taken to the cardiac catheterization lab for PCI with 3 drug-eluting stents placed. Patient loaded on Brilinta and then started on aspirin 81 mg p.o. daily as well as Brilinta twice daily which she will need for up to 1 year. Patient with no recurrent chest pain. Family history of cardiac disease but no personal history other than some blood pr essure issues. No other acute problems. Recommendations: Reason Critically Ill: Acute myocardial infarction Neuro - [facility] ICU: Alert and oriented x4 Cardiac - Acute IN: * Culprit lesion appeared to be the OM 2. This was stented with a long drug- eluting stent. He also had significant disease in the OM1 which was stented with 2 overlapped drug-eluting stents. * He will be on dual antiplatelet therapy with aspirin 81 mg daily and Brilinta 90 mg p.o. twice daily for up to a year. * If he has intolerance to the Brilinta or it is unaffordable then we will convert Brilinta to clopidogrel prior to discharge. * Further management per cardiology * Add a magnesium level to earlier labs * Follow CBC and BMP tomorrow CAD: * Patient currently not on any home medications * Start metoprolol tartrate 25 mg p.o. twice daily * Atorvastatin 40 mg p.o. daily * Aspirin 81 mg p.o. daily * Follow-up with cardiology on discharge Benign hypertension: * Metoprolol tartrate 25 mg p.o. twice daily * Patient will need outpatient follow-up with cardiology * Continue to monitor on telemetry Respiratory - * No acute respiratory complaints * Chest x-ray with no evidence of cardiopulmonary disease * Maintain SaO2 greater than 90%. GI - * Okay to resume heart healthy diet RENAL/LYTES - * NSS at 75 mL/h. Can discontinue fluids once patient is tolerating diet - * No issues * Follow ins and outs per critical care protocol ENDO - * No history of diabetes mellitus * Random glucose is 104 HEME - * No acute bleeding with cardiac catheterization * Hemoglobin is 14.3 ID - * No fever chills or sweats. No recent illness. No recent travel out of the country. LINES/IV ACCESS - * Peripheral IV is in place. No indication for central line DVT PROPHYLAXIS - * Patient is on heparin drip per weight-based protocol * Continue with Brilinta twice daily as well as aspirin 81 mg p.o. daily CCT: 45 minutes minutes independent of any procedures Thank you for including us in the care of this patient. Please refer to Dr. Ingram's addendum for further recommendations. History of Present Illness Attending Physician: Imani Garcia MD History of Present Illness Attending: Dr. Ingram This is a 47-year-old male that recently moved here from [place]. He has no significant past medical history. He presented with chest pain and was found to have multivessel disease. He was taken to the cardiac catheterization lab. Culprit lesion appeared to be the OM 2. This was stented with a long drug- eluting stent. He also had significant disease in the OM1 which was stented with 2 overlapped drug-eluting stents. He was started on dual antiplatelet therapy with aspirin 81 mg daily and Brilinta.patient denies any current chest pain. He has no shortness of breath. He denies any pain into his neck shoulder or arm. He has no acute complaints at all. Patient's is present with him at this time. They report that they had just talked about starting an exercise regimen. Patient is slightly overweight with a BMI of 29.5 kg/m. Is slightly hypertensive. He is aware the lifestyle modification is important at this time and committed to initiate changes. Patient has no tobacco abuse history. He does however smoke marijuana. He does not vape. No other previous cardiac issues. Patient does not have a primary care physician. Medical cafe attendant is suggested. Allergies Allergy/AdvReac Type Severity Reaction Status Date / Time No Known Allergies Allergy Unverified 11/04/22 06:52 Home Medications Medication Instructions Recorded Confirmed Type ibuprofen 200 mg tablet (Advil) 400 mg PO Q6H PRN Pain 11/04/22 11/04/22 History Patient History Medical History (Updated 11/04/22 @ 11:52 by Johnathan Meza PA-C) Acute IN Atherogenic dyslipidemia Benign essential hypertension Coronary artery disease Marijuana user Social History Smoking Status: Current some day smoker Hx Alcohol Use: Yes Alcohol type: beer Hx Substance Use: Yes Last Used Substance: Hours (ago) Last Used Substance Other:: Last night Communication Ability: Effective Wool Cleaner Required: No Beliefs That Will Affect Care: None Current Living Situation: Spouse Other Information That Helps Us Care for You: No Feels Safe at Home: Yes Safety Concerns: Feels Safe At This Time Assistive Devices: Glasses Review of Systems Review of Systems: A total of 10 systems was reviewed and is negative other than as listed in the HPI Physical Exam Physical Exam: GENERAL : No acute distress EYES: No icterus, gaze conjugate NOSE: No evidence of epistaxis MOUTH: No lesions or candidiasis NECK: Supple LUNGS: CTA B/L, no wheezes, rales or rhonchi HEART: Regular, rate controlled ABDOMEN: Soft, NT, ND, BS Present EXTREMITIES: No LE edema, pedal pulses intact NEURO: A&OX3 Results & Data Results & Data Vital Signs (Past 12 Hours) Vital Signs Temp Pulse Pulse Resp BP BP Pulse Ox 11/04/22 11:00 73 15 144/88 H 97 11/04/22 10:45 66 13 123/85 97 11/04/22 10:30 59 L 12 122/85 95 11/04/22 10:15 62 18 134/83 96 11/04/22 10:00 36.5 C 66 14 135/86 99 11/04/22 08:30 56 L 18 99 11/04/22 08:30 137/93 11/04/22 08:27 139/89 11/04/22 08:27 53 L 11 L 99 11/04/22 08:22 65 24 100 11/04/22 08:22 152/96 H 11/04/22 08:00 59 L 14 99 11/04/22 08:00 172/116 H 11/04/22 07:30 53 L 11 L 96 11/04/22 07:30 147/110 H 11/04/22 07:00 56 L 13 97 11/04/22 07:00 156/102 H 11/04/22 07:40 79 19 147/110 H 97 11/04/22 06:30 58 L 20 169/106 H 99 11/04/22 06:28 65 21 175/111 H 96 11/04/22 06:23 67 15 11/04/22 06:25 67 11/04/22 06:07 36.8 C 70 20 158/98 H 98 O2 Del Method 11/04/22 11:00 Room Air 11/04/22 10:45 Room Air 11/04/22 10:30 Room Air 11/04/22 10:15 Room Air 11/04/22 10:00 Room Air 11/04/22 08:30 11/04/22 08:30 11/04/22 08:27 11/04/22 08:27 11/04/22 08:22 11/04/22 08:22 11/04/22 08:00 11/04/22 08:00 11/04/22 07:30 11/04/22 07:30 11/04/22 07:00 11/04/22 07:00 11/04/22 07:40 Room Air 11/04/22 06:30 Room Air 11/04/22 06:28 Room Air 11/04/22 06:23 11/04/22 06:25 11/04/22 06:07 Room Air Critical Care Results & Data Vital Signs (Past 12 Hours) Vital Signs Temp Pulse Pulse Resp BP BP Pulse Ox 11/04/22 11:00 73 15 144/88 H 97 11/04/22 10:45 66 13 123/85 97 11/04/22 10:30 59 L 12 122/85 95 11/04/22 10:15 62 18 134/83 96 11/04/22 10:00 36.5 C 66 14 135/86 99 11/04/22 08:30 56 L 18 99 11/04/22 08:30 137/93 11/04/22 08:27 139/89 11/04/22 08:27 53 L 11 L 99 11/04/22 08:22 65 24 100 11/04/22 08:22 152/96 H 11/04/22 08:00 59 L 14 99 11/04/22 08:00 172/116 H 11/04/22 07:30 53 L 11 L 96 11/04/22 07:30 147/110 H 11/04/22 07:00 56 L 13 97 11/04/22 07:00 156/102 H 11/04/22 07:40 79 19 147/110 H 97 11/04/22 06:30 58 L 20 169/106 H 99 11/04/22 06:28 65 21 175/111 H 96 11/04/22 06:23 67 15 11/04/22 06:25 67 11/04/22 06:07 36.8 C 70 20 158/98 H 98 O2 Del Method 11/04/22 11:00 Room Air 11/04/22 10:45 Room Air 11/04/22 10:30 Room Air 11/04/22 10:15 Room Air 11/04/22 10:00 Room Air 11/04/22 08:30 11/04/22 08:30 11/04/22 08:27 11/04/22 08:27 11/04/22 08:22 11/04/22 08:22 11/04/22 08:00 11/04/22 08:00 11/04/22 07:30 11/04/22 07:30 11/04/22 07:00 11/04/22 07:00 11/04/22 07:40 Room Air 11/04/22 06:30 Room Air 11/04/22 06:28 Room Air 11/04/22 06:23 11/04/22 06:25 11/04/22 06:07 Room Air Lab & Micro Results (Past 24 Hours) RBC 4.83 M/uL (4.70-6.10) 11/04/22 WBC 7.67 K/ul (4.8-10.8) 11/04/22 Hgb 14.3 g/dl (14.0-18.0) 11/04/22 Hct 39.3 % (42.0-52.0) L 11/04/22 MCV 81.4 fL (80.0-100.0) 11/04/22 MCH 29.6 pg (25.0-34.0) 11/04/22 MCHC 36.4 g/dL (32.0-36.0) H 11/04/22 RDW Standard Deviation 37.2 fL (36.4-46.3) 11/04/22 RDW Coefficient of Variation 12.7 % (11.5-14.5) 11/04/22 Plt Count 168 K/uL (130-400) 11/04/22 MPV 9.6 fL (9.4-12.4) 11/04/22 Neutrophils (%) (Auto) 81.1 % 11/04/22 Lymphocytes (%) (Auto) 12.3 % 11/04/22 Monocytes # (Auto) 0.44 K/uL (0.11-0.59) 11/04/22 Eosinophils # (Auto) 0.02 K/uL (0-0.50) 11/04/22 Immature Granulocyte % (Auto) 0.3 % 11/04/22 Neutrophils # (Auto) 6.23 K/uL (1.40-6.50) 11/04/22 Lymphocytes # (Auto) 0.94 K/uL (1.2-3.4) L 11/04/22 Monocytes # (Auto) 0.44 K/uL (0.11-0.59) 11/04/22 Eosinophils # (Auto) 0.02 K/uL (0-0.50) 11/04/22 Basophils # (Auto) 0.02 K/uL (0-0.2) 11/04/22 Immature Granulocyte # (Auto) 0.02 K/uL (0.01-0.20) 3 Na 138 mmol/L (136-145) 11/04/22 K 4.2 mmol/L (3.5-5.1) 11/04/22 Cl 107 mmol/L (98-107) 11/04/22 CO2 26 mmol/L (21-32) 11/04/22 Anion Gap 5 (3-11) 11/04/22 BUN 15 mg/dl (6-23) 11/04/22 Creatinine 1.02 mg/dl (0.6-1.4) 11/04/22 Estimated GFR ( Amer) 101.0 ml/min 11/04/22 Estimated GFR (Non-Af Amer) 87.1 ml/min 11/04/22 BUN/Creatinine Ratio 14.7 (10-20) 11/04/22 Glu 104 mg/dl (70-99(Fasting)) H 11/04/22 Ca 9.3 mg/dl (8.6-10.3) 11/04/22 Total Bilirubin 0.4 mg/dl (0.2-1.0) 11/04/22 AST 17 U/L (13-39) 11/04/22 ALT 15 U/L (7-52) 11/04/22 Alkaline Phosphatase 60 U/L (34-104) 11/04/22 TP 6.8 gm/dl (6.0-8.3) 11/04/22 Albumin 4.0 gm/dl (3.4-5.0) 11/04/22 Globulin 2.8 gm/dl (2.5-4.0) 11/04/22 Albumin/Globulin Ratio 1.4 (0.9-2) 11/04/22 Calcium Level 9.3 mg/dl (8.6-10.3) 11/04/22 06:30 Prothromb Time International Ratio 1.0 (0.9-1.1) 11/04/22 06:3 0 Diagnostic Findings (Past 24 Hours) Chest X-Ray 11/04/22 06:53 XR chest 1V not portable HISTORY: Chest pain, nonspecific COMPARISON: None. FINDINGS: The lungs are clear. Cardiac silhouette is normal in size. No pleural effusions. No pneumothorax. IMPRESSION: No acute process. ACT 112: Negative or not required by law. Electronically signed by: Juvenal Briones M.D. 11/04/2022 8:14 AM I & O Totals 24 Hours 11/03/22 11/04/22 11/05/22 06:59 06:59 06:59 Output Total 650 / 650 Balance -650 / -650 Cumulative 11/04/22 06:03 thru 11/04/22 10:00 Output Total 650 Balance -650 RT Ventilator Mngmt (Last Documented) Ventilator Ordered Settings Respiratory Rate 15 11/04/22 11:00 Ventilator - PT Measurements Respiratory Rate 15 Coding Level of Care Code 12084 CRITICAL CARE 1ST 30-74M Diagnoses Benign essential hypertension I10 Atherogenic dyslipidemia E78.5 Coronary artery disease I25.10 Acute IN I21.9 Marijuana user F12.90 Time Spent (min) 45
[2022-11-04 13:02] LABS: Magnesium 1.9 mg/dl (1.7-2.4)
[2022-11-04] MEDS ORDERED: MAGNESIUM SULFATE / D5W 1 GM/100 ML BAG IV ONE (14:00)
[2022-11-04] MEDS: METOPROLOL TARTRATE 25 MG TAB PO SCH (20:04)
[2022-11-04] MEDS: TICAGRELOR 90 MG TAB PO SCH (20:04)
--- NOTE | 2022-11-04 23:47 | XCELERA ---
[id number]
[2022-11-05] MEDS: SODIUM CHLORIDE 0.9% 1000ML 1,000 ML IV SCH (00:48)
[2022-11-05 05:10] LABS: Hematocrit (blood only) 40.9 % (42.0-52.0); Hemoglobin 14.5 g/dl (14.0-18.0); Mean Corpuscular Hemoglobin 29.7 pg (25.0-34.0); Mean Corpuscular Hgb Conc 35.5 g/dL (32.0-36.0); Mean Corpuscular Volume 83.6 fL (80.0-100.0); Mean Platelet Volume 9.3 fL (9.4-12.4); Platelet Count 164 K/uL (130-400); RDW Standard Deviation 39.4 fL (36.4-46.3); Red Blood Count 4.89 M/uL (4.70-6.10); White Blood Count 5.79 K/ul (4.8-10.8)
[2022-11-05] MEDS: ACETAMINOPHEN 325 MG TAB PO PRN ×3 (05:16→20:17)
[2022-11-05 05:28] LABS: Phosphorus 3.5 mg/dl (2.5-4.9)
--- NOTE | 2022-11-05 07:21 | Critical Care Progress Note ---
Date of Service November 05, 2022 Assessment & Plan (1) Acute IN: (2) Benign essential hypertension: (3) Atherogenic dyslipidemia: Plan Impression: 47-year-old male with acute coronary syndrome status post drug- eluting stent. He is doing well clinically. Recommendations: 1. Acute coronary syndrome: Currently on aspirin and Brilinta. Echocardiogram completed. EF of 55 to 60% without regional wall motion abnormalities. No valvular abnormalities. Mild concentric LVH. Patient will require cardiac rehab. 2. Hypertension: Continue metoprolol. 3. Hyperlipidemia: Continue Lipitor. Patient's critical care issues have resolved. Critical care will sign off. Disposition per primary and cardiology. Please call if we can be of additional assistance Admission and Anticipated Discharge Date Admission Date: November 04, 2022 Subjective Patient seen and examined. EMR reviewed. Discussed with critical care bedside nurse. Patient is doing well this morning. He denies any chest pain or palpitations. No pain at his cardiac catheterization site. He denies nausea or vomiting. No swelling in his lower extremities. He denies fevers chills night sweats or other constitutional symptoms. Review of Systems Review of Systems: All systems reviewed & are unremarkable except as noted in Subjective Physical Exam Constitutional: WD/WN, vitals as above Neck: trachea midline, no thyromegaly Respiratory: normal respiratory effort, lungs clear to auscultation Cardiovascular: RRR, no murmur, no edema Gastrointestinal (Abdomen): normal bowel sounds, soft, nontender, no hepatosplenomegaly Musculoskeletal: Extremities: extremities normal to inspection Skin: no rashes, warm and dry Neurologic: Nonfocal exam Lymphatic: no cervical lymphadenopathy Results & Data Results & Data Vital Signs (Past 12 Hours) Vital Signs Pulse Resp BP Pulse Ox O2 Del Method 11/05/22 07:11 58 L 11/05/22 07:00 58 L 12 97 11/05/22 07:00 101/70 11/05/22 06:00 63 11 L 96 11/05/22 06:00 129/82 11/05/22 05:00 72 23 97 11/05/22 05:00 122/87 11/05/22 04:00 61 12 96 11/05/22 04:00 112/78 11/05/22 03:00 59 L 12 96 11/05/22 03:00 119/74 11/05/22 02:00 59 L 12 96 11/05/22 02:00 118/84 11/05/22 00:00 59 L 11/05/22 01:00 59 L 13 96 11/05/22 01:00 125/85 11/05/22 00:00 57 L 8 L 96 11/05/22 00:00 123/75 11/04/22 23:00 56 L 10 L 96 11/04/22 23:00 111/71 11/04/22 21:00 68 13 152/99 H 96 Room Air 11/04/22 20:00 80 17 138/96 97 Room Air Critical Care Results & Data Vital Signs (Past 12 Hours) Vital Signs Pulse Resp BP Pulse Ox O2 Del Method 11/05/22 07:11 58 L 11/05/22 07:00 58 L 12 97 11/05/22 07:00 101/70 11/05/22 06:00 63 11 L 96 11/05/22 06:00 129/82 11/05/22 05:00 72 23 97 11/05/22 05:00 122/87 11/05/22 04:00 61 12 96 11/05/22 04:00 112/78 11/05/22 03:00 59 L 12 96 11/05/22 03:00 119/74 11/05/22 02:00 59 L 12 96 11/05/22 02:00 118/84 11/05/22 00:00 59 L 11/05/22 01:00 59 L 13 96 11/05/22 01:00 125/85 11/05/22 00:00 57 L 8 L 96 11/05/22 00:00 123/75 11/04/22 23:00 56 L 10 L 96 11/04/22 23:00 111/71 11/04/22 21:00 68 13 152/99 H 96 Room Air 11/04/22 20:00 80 17 138/96 97 Room Air Lab & Micro Results (Past 24 Hours) RBC 4.89 M/uL (4.70-6.10) 11/05/22 WBC 5.79 K/ul (4.8-10.8) 11/05/22 Hgb 14.5 g/dl (14.0-18.0) 11/05/22 Hct 40.9 % (42.0-52.0) L 11/05/22 MCV 83.6 fL (80.0-100.0) 11/05/22 MCH 29.7 pg (25.0-34.0) 11/05/22 MCHC 35.5 g/dL (32.0-36.0) 11/05/22 RDW Standard Deviation 39.4 fL (36.4-46.3) 11/05/22 RDW Coefficient of Variation 13.0 % (11.5-14.5) 11/05/22 Plt Count 164 K/uL (130-400) 11/05/22 MPV 9.3 fL (9.4-12.4) L 11/05/22 Neutrophils (%) (Auto) 81.1 % 11/04/22 Lymphocytes (%) (Auto) 12.3 % 11/04/22 Monocytes # (Auto) 0.44 K/uL (0.11-0.59) 11/04/22 Eosinophils # (Auto) 0.02 K/uL (0-0.50) 11/04/22 Immature Granulocyte % (Auto) 0.3 % 11/04/22 Neutrophils # (Auto) 6.23 K/uL (1.40-6.50) 11/04/22 Lymphocytes # (Auto) 0.94 K/uL (1.2-3.4) L 11/04/22 Monocytes # (Auto) 0.44 K/uL (0.11-0.59) 11/04/22 Eosinophils # (Auto) 0.02 K/uL (0-0.50) 11/04/22 Basophils # (Auto) 0.02 K/uL (0-0.2) 11/04/22 Immature Granulocyte # (Auto) 0.02 K/uL (0.01-0.20) 3 Phosphorus Level 3.5 mg/dl (2.5-4.9) 11/05/22 Mg 2.0 mg/dl (1.7-2.4) 11/05/22 04:50 Diagnostic Findings (Past 24 Hours) Chest X-Ray 11/04/22 06:53 XR chest 1V not portable HISTORY: Chest pain, nonspecific COMPARISON: None. FINDINGS: The lungs are clear. Cardiac silhouette is normal in size. No pleural effusions. No pneumothorax. IMPRESSION: No acute process. ACT 112: Negative or not required by law. Electronically signed by: Juvenal Briones M.D. 11/04/2022 8:14 AM I & O Totals 24 Hours 11/04/22 11/05/22 11/06/22 06:59 06:59 06:59 Intake Total 1092.5 / 1092.5 468.75 / 468.75 Output Total 2325 / 2325 Balance -1232.5 / -1232.5 468.75 / 468.75 Cumulative 11/04/22 06:03 thru 11/05/22 07:03 Intake Total 1561.25 Output Total 2325 Balance -763.75 RT Ventilator Mngmt (Last Documented) Ventilator Ordered Settings Respiratory Rate 12 11/05/22 07:00 Ventilator - PT Measurements Respiratory Rate 12 Coding Level of Care Code 95972 SUB INP/OBS CARE 2/35MIN Diagnoses Acute IN I21.9 Benign essential hypertension I10 Atherogenic dyslipidemia E78.5
[2022-11-05] MEDS: TICAGRELOR 90 MG TAB PO SCH ×2 (08:24→20:11)
[2022-11-05] MEDS: ICU Protocol for HYPERglycemia SCH ×3 (08:25→17:31)
[2022-11-05] MEDS: ATORVASTATIN 40 MG TAB PO SCH (08:25)
[2022-11-05] MEDS: METOPROLOL TARTRATE 25 MG TAB PO SCH ×2 (08:25→20:11)
[2022-11-05] MEDS: ASPIRIN 81 MG ECTAB PO SCH (08:25)
[2022-11-05 10:05] LABS: Basophils # (auto) 0.02 K/uL (0-0.2); Basophils % (auto) 0.3 %; Eosinophils # (auto) 0.03 K/uL (0-0.50); Eosinophils % (auto) 0.5 %; Hematocrit (blood only) 39.9 % (42.0-52.0); Hemoglobin 14.2 g/dl (14.0-18.0); Immature Granulocytes # (auto) 0.01 K/uL (0.01-0.20); Immature Granulocytes % (auto) 0.2 %; Lymphocytes # (auto) 1.24 K/uL (1.2-3.4); Lymphocytes % (auto) 20.6 %; Mean Corpuscular Hemoglobin 29.3 pg (25.0-34.0); Mean Corpuscular Hgb Conc 35.6 g/dL (32.0-36.0); Mean Corpuscular Volume 82.4 fL (80.0-100.0); Mean Platelet Volume 9.6 fL (9.4-12.4); Monocytes # (auto) 0.48 K/uL (0.11-0.59); Neutrophils # (auto) 4.23 K/uL (1.40-6.50); Neutrophils % (auto) 70.4 %; Platelet Count 166 K/uL (130-400); RDW Standard Deviation 38.8 fL (36.4-46.3); Red Blood Count 4.84 M/uL (4.70-6.10); White Blood Count 6.01 K/ul (4.8-10.8)
[2022-11-05 10:24] LABS: BUN Creatinine Ratio 12.5 (10-20); Creatinine Clr Calc Pharmacy 111.8 ml/min; Est GFR (African American) 118.6 ml/min; Est GFR (Non-African American) 102.3 ml/min; Potassium 4.1 mmol/L (3.5-5.1)
--- NOTE | 2022-11-05 10:30 | Cardiology Progress Note ---
Date of Service November 05, 2022 Assessment & Plan (1) Acute LA: Plan: Status post PCI with implantation of 3 drug-eluting stents. No complications. Mild to moderate residual coronary disease. Blood pressure is slightly above target. Heart rate is at target. Dual antiplatelet therapy with aspirin 81 mg daily and Brilinta 90 mg p.o. twice daily we will continue for up to 1 year. Guideline directed medical therapy with aspirin, a atorvastatin, metoprolol tartrate, will be continued. We may consider addition of TERESA inhibitor or angiotensin receptor jaiden if his blood pressure remains above target. Fortunately, his echo in combination with his troponin elevation suggest mild myocardial injury. Prognosis is excellent. He should participate in cardiac rehab to optimize cardiovascular morbidity and mortality. (2) Atherogenic dyslipidemia: Plan: Patient is high risk. LDL was 175. Target LDL reduction will be greater than or equal to 50% of untreated baseline LDL. Continue atorvastatin 40 mg daily and reassess therapy after 3 months. Titrate to achieve target LDL reduction. (3) Benign essential hypertension: Plan: Blood pressure is slightly above target. For now we will continue with his current regimen but anticipate that we may need to add an TERESA inhibitor or angiotensin receptor jaiden as an outpatient. Plan Patient is appropriate for transfer to PCU. Assuming no complications he would then be appropriate for discharge tomorrow morning. He should follow-up within 3 weeks of discharge. Admission and Anticipated Discharge Date Admission Date: November 04, 2022 Subjective Patient seen at the bedside with his in attendance. He denies any recurrence of chest pain, shortness of breath, pain at the radial artery access site, or other complaints at this time. He seems to be tolerating his medications. He has been out of bed once and had no symptoms with that activity. No events recorded overnight. Review of Systems Review of Systems: Negative except as per HPI Physical Exam Constitutional: WD/WN, vitals as above Eyes: Extraocular muscles intact. Sclera are anicteric. Neck: No JVD Respiratory: Clear to auscultation bilaterally. No wheezing, rhonchi, or rales Cardiovascular: Regular rate and rhythm. No gallops, rubs, or murmurs appreciated. No edema. Musculoskeletal: no cyanosis or clubbing, extremities motor strength 5/5 (Right radial access C/D/I. Good distal perfusion) Neurologic: Cognition is intact. Speech is fluent. No focal deficits. No tremor. Psychiatric: A+Ox3, euthymic affect Results & Data Vital Signs (Past 12 Hours) Vital Signs Temp Pulse Resp BP Pulse Ox O2 Del Method 11/05/22 08:00 79 14 114/83 98 Room Air 11/05/22 08:00 36.4 C L 11/05/22 08:00 58 L 11/05/22 07:11 58 L 11/05/22 07:00 58 L 12 97 11/05/22 07:00 101/70 11/05/22 06:00 63 11 L 96 11/05/22 06:00 129/82 11/05/22 05:00 72 23 97 11/05/22 05:00 122/87 11/05/22 04:00 61 12 96 11/05/22 04:00 112/78 11/05/22 03:00 59 L 12 96 11/05/22 03:00 119/74 11/05/22 02:00 59 L 12 96 11/05/22 02:00 118/84 11/05/22 00:00 59 L 11/05/22 01:00 59 L 13 96 11/05/22 01:00 125/85 11/05/22 00:00 57 L 8 L 96 11/05/22 00:00 123/75 11/04/22 23:00 56 L 10 L 96 11/04/22 23:00 111/71 PG Care Time/CCT Total # of Minutes Spent Total Time Spent with Patient: Total time spent is greater than 50% in coordination of care (as documented) at patient's floor/unit and/or counseling patient: Coding Level of Care Code 66239 SUB INP/OBS CARE 2/35MIN Diagnoses Acute LA I21.9 Atherogenic dyslipidemia E78.5 Benign essential hypertension I10
--- NOTE | 2022-11-05 14:01 | Hospitalist Progress Note ---
Date of Service November 05, 2022 Assessment & Plan (1) Acute MA: Plan: Patient presents to the hospital on account of chest pain/pressure Initial EKGs did not show any changes however the third EKG showed elevated of ST in inferior leads. He was emergently taken to the cardiac cath and subsequently stented x2 LAD and RCA. 2D echo did not show any evidence of wma, EF, 55-60% Appreciate cardiology Patient was monitored in the ICU. Patient does not have a PCP and 1 will be arranged upon discharge. Continue ASA, Metoprolol, statin, Brillinta, will need TERESA inhibitor before discharge, will defer to cardiology (2) Coronary artery disease: Plan: Continue Statin,ASA, Metoprolol (3) Atherogenic dyslipidemia: Plan: continue stain, ASA, metoprolol (4) Benign essential hypertension: Plan: BP under fair control Will need an TERESA inhibitor on discharge per cardiology (5) Marijuana user: Plan Continue hospitalization Full code DVT prophylaxis SCDs Admission and Anticipated Discharge Date Admission Date: November 04, 2022 Subjective patient seen and examined, stable post cath and stent, denies chest pain Review of Systems Review of Systems: All systems reviewed are negative, apart from the ones contained in the history. Physical Exam Physical Exam: The patient is awake, alert and oriented 3, well developed and well nourished, normocephalic and atraumatic, lying in bed and in no acute distress. HEENT--PERRL, EOMI, mucous membranes and oropharynx mildly dry Neck--supple. No JVD. No bruits. Thyroid normal, trachea midline, no adenopathy. Heart--normal S1 and S2. No murmurs, rubs or gallops. Lungs--clear bilaterally, no respiratory distress, no accessory muscle use. Abdomen--normal bowel sounds and soft. Mild epigastric and left sided abdominal pain Extremities--no cyanosis or clubbing. No edema. Dermatologic--normal skin turgor, normal color, no abnormal lymph nodes, no rash. Neurologic--cranial nerves II through XII grossly intact. Rheumatologic--normal range of motion. Psychiatric--normal affect. Results & Data Results & Data Vital Signs (Past 12 Hours) Vital Signs Temp Pulse Resp BP Pulse Ox O2 Del Method 11/05/22 11:00 58 L 15 127/89 97 11/05/22 10:01 55 L 15 142/90 H 98 11/05/22 09:00 75 18 127/85 96 11/05/22 11:30 97.5 F L 11/05/22 08:00 79 14 114/83 98 Room Air 11/05/22 08:00 97.5 F L 11/05/22 08:00 58 L 11/05/22 07:11 58 L 11/05/22 07:00 58 L 12 97 11/05/22 07:00 101/70 11/05/22 06:00 63 11 L 96 11/05/22 06:00 129/82 11/05/22 05:00 72 23 97 11/05/22 05:00 122/87 11/05/22 04:00 61 12 96 11/05/22 04:00 112/78 11/05/22 03:00 59 L 12 96 11/05/22 03:00 119/74 PG Care Time/CCT Total # of Minutes Spent Total Time Spent with Patient: Total time spent is greater than 50% in coordination of care (as documented) at patient's floor/unit and/or counseling patient: Coding Level of Care Code 51723 SUB INP/OBS CARE 2/35MIN Diagnoses Acute MA I21.9 Coronary artery disease I25.10 Atherogenic dyslipidemia E78.5 Benign essential hypertension I10 Marijuana user F12.90 Time Spent (min) 35
--- NOTE | 2022-11-06 06:00 | Electrocardiogram Report ---
Test Reason : Blood Pressure : / mmHG Vent. Rate : 058 BPM Atrial Rate : 058 BPM P-R Int : 140 ms QRS Dur : 080 ms QT Int : 412 ms P-R-T Axes : 007 028 053 degrees QTc Int : 404 ms Sinus bradycardia Nonspecific ST abnormality No previous ECGs available Confirmed by Rambo Zavaleta ([id number]) on 11/06/2022 5:59:30 AM Referred By: REFERRED SELF Confirmed By:Rambo Zavaleta
--- NOTE | 2022-11-06 06:00 | Electrocardiogram Report ---
Test Reason : Blood Pressure : / mmHG Vent. Rate : 051 BPM Atrial Rate : 051 BPM P-R Int : 148 ms QRS Dur : 072 ms QT Int : 414 ms P-R-T Axes : 028 020 028 degrees QTc Int : 381 ms Sinus bradycardia Nonspecific ST abnormality When compared with ECG of 04-NOV-2022 07:24, No significant change was found Confirmed by Rambo Zavaleta ([id number]) on 11/06/2022 6:00:24 AM Referred By: REFERRED SELF Confirmed By:Rambo Zavaleta
--- NOTE | 2022-11-06 06:00 | Electrocardiogram Report ---
Test Reason : Blood Pressure : / mmHG Vent. Rate : 051 BPM Atrial Rate : 051 BPM P-R Int : 150 ms QRS Dur : 076 ms QT Int : 424 ms P-R-T Axes : 021 031 044 degrees QTc Int : 390 ms Sinus bradycardia Nonspecific ST abnormality When compared with ECG of 04-NOV-2022 06:18, No significant change was found Confirmed by Rambo Zavaleta ([id number]) on 11/06/2022 6:00:07 AM Referred By: REFERRED SELF Confirmed By:Rambo Zavaleta
--- NOTE | 2022-11-06 06:04 | Electrocardiogram Report ---
Test Reason : Blood Pressure : / mmHG Vent. Rate : 058 BPM Atrial Rate : 058 BPM P-R Int : 154 ms QRS Dur : 078 ms QT Int : 378 ms P-R-T Axes : 029 044 063 degrees QTc Int : [address] elevation consider inferolateral injury or acute infarct ACUTE NC / STEMI Abnormal ECG When compared with ECG of 04-NOV-2022 07:46, Inferolateral STEMI is now present Confirmed by Rambo Zavaleta ([id number]) on 11/06/2022 6:04:00 AM Referred By: REFERRED SELF Confirmed By:Rambo Zavaleta
[2022-11-06 06:07] LABS: Magnesium 1.8 mg/dl (1.7-2.4); Phosphorus 3.6 mg/dl (2.5-4.9)
[2022-11-06] MEDS: METOPROLOL TARTRATE 25 MG TAB PO SCH (08:54)
[2022-11-06] MEDS: ATORVASTATIN 40 MG TAB PO SCH (08:54)
[2022-11-06] MEDS: ASPIRIN 81 MG ECTAB PO SCH (08:54)
[2022-11-06] MEDS: TICAGRELOR 90 MG TAB PO SCH (08:55)
[2022-11-06 10:05] LABS: Basophils # (auto) 0.03 K/uL (0-0.2); Basophils % (auto) 0.5 %; Eosinophils # (auto) 0.06 K/uL (0-0.50); Eosinophils % (auto) 1.1 %; Hematocrit (blood only) 41.6 % (42.0-52.0); Hemoglobin 14.9 g/dl (14.0-18.0); Immature Granulocytes # (auto) 0.08 K/uL (0.01-0.20); Immature Granulocytes % (auto) 1.4 %; Lymphocytes # (auto) 1.21 K/uL (1.2-3.4); Lymphocytes % (auto) 21.5 %; Mean Corpuscular Hemoglobin 29.5 pg (25.0-34.0); Mean Corpuscular Hgb Conc 35.8 g/dL (32.0-36.0); Mean Corpuscular Volume 82.4 fL (80.0-100.0); Mean Platelet Volume 9.6 fL (9.4-12.4); Monocytes % (auto) 8.9 %; Neutrophils # (auto) 3.75 K/uL (1.40-6.50); Neutrophils % (auto) 66.6 %; Platelet Count 185 K/uL (130-400); RDW Coefficient of Variation 12.8 % (11.5-14.5); Red Blood Count 5.05 M/uL (4.70-6.10); White Blood Count 5.63 K/ul (4.8-10.8)
[2022-11-06 10:18] LABS: BUN Creatinine Ratio 18.7 (10-20); Calcium 9.2 mg/dl (8.6-10.3); Creatinine Clr Calc Pharmacy 108.2 ml/min; Est GFR (African American) 115.9 ml/min; Potassium 4.3 mmol/L (3.5-5.1)
--- NOTE | 2022-11-06 11:37 | Cardiology Progress Note ---
Date of Service November 06, 2022 Assessment & Plan (1) Coronary artery disease: Plan: Status post PA, status post PCI. Continue dual antiplatelet therapy with aspirin and Brilinta. Continue guideline directed medical therapy with statin and beta-jaiden in addition to the aspirin. (2) Atherogenic dyslipidemia: Plan: High risk. High intensity statin therapy with a atorvastatin 40 mg daily. Target LDL is 88 mg/dL. (3) Benign essential hypertension: Plan: Blood pressure is adequately controlled. Continue current regimen. We will consider TERESA inhibitor/angiotensin receptor jaiden as an outpatient. Plan Patient is appropriate for discharge at this time. Patient will be scheduled for outpatient follow-up within 2 weeks. Admission and Anticipated Discharge Date Admission Date: November 04, 2022 Subjective Patient doing well. Denies chest pain or shortness of breath. No pain at the radial access site. No events recorded overnight. He is anxious for discharge at this time. Review of Systems Review of Systems: Negative except as per HPI Physical Exam Constitutional: WD/WN, vitals as above Neck: No JVD Respiratory: Clear to auscultation bilaterally. No respiratory distress. Cardiovascular: Regular rate and rhythm. Sinus rhythm on the monitor. No murmur no edema. Musculoskeletal: no cyanosis or clubbing, extremities motor strength 5/5 (Radial access site intact, good distal perfusion) Neurologic: Cognition intact. Speech fluent. No focal deficits. Psychiatric: A+Ox3, euthymic affect Results & Data Vital Signs (Past 12 Hours) Vital Signs Temp Pulse Resp BP BP Pulse Ox O2 Del Method 11/06/22 10:00 55 L 11 L 11/06/22 09:00 67 20 11/06/22 08:50 80 13 11/06/22 08:00 68 13 135/76 95 Room Air 11/06/22 07:00 64 14 11/06/22 05:00 65 0 L 11/06/22 04:00 59 L 26 H 11/06/22 03:00 64 18 11/06/22 02:00 55 L 26 H 11/06/22 01:00 71 16 11/06/22 00:00 57 L 19 11/06/22 05:22 37 C 129/65 11/06/22 02:23 57 L PG Care Time/CCT Total # of Minutes Spent Total Time Spent with Patient: Total time spent is greater than 50% in coordination of care (as documented) at patient's floor/unit and/or counseling patient: Coding Level of Care Code 72277 SUB INP/OBS CARE Diagnoses Coronary artery disease I25.10 Atherogenic dyslipidemia E78.5 Benign essential hypertension I10
--- NOTE | 2022-11-06 13:57 | Discharge Summary ---
Date of Service November 06, 2022 Admission HPI Per Admitting Provider Is a 47-year-old male with no significant past medical history who presents to the hospital today on account of chest pain/pressure. According to the patient initially the pressure radiated to left shoulder. Although when I saw him in the emergency department he said the pain no longer radiated reports there was a constant pressure on his chest. Initial 2 EKGs did not show any ST elevation or changes however initial troponin was 50. The in the emergency department, when I was in the room he said the pressure got worse and a repeat EKG was ordered which showed ST elevation in the inferior leads. Heart code was called and cardiology was notified. Patient was taken to the cardiac cath for emergency catheterization and subsequent drug-eluting stent x2. He will be taken to ICU post cath. Of note, patient does not have a primary care doctor and has not seen a doctor in a long time. Vital signs currently stable, blood pressure 137/93, saturating well on room air. Principal Diagnosis STEMI Discharge Exam The patient is awake, alert and oriented 3, well developed and well nourished, normocephalic and atraumatic, lying in bed and in no acute distress. HEENT--PERRL, EOMI, mucous membranes and oropharynx mildly dry Neck--supple. No JVD. No bruits. Thyroid normal, trachea midline, no adenopathy. Heart--normal S1 and S2. No murmurs, rubs or gallops. Lungs--clear bilaterally, no respiratory distress, no accessory muscle use. Abdomen--normal bowel sounds and soft. Mild epigastric and left sided abdominal pain Extremities--no cyanosis or clubbing. No edema. Dermatologic--normal skin turgor, normal color, no abnormal lymph nodes, no rash. Neurologic--cranial nerves II through XII grossly intact. Rheumatologic--normal range of motion. Psychiatric--normal affect. Discharge Data Allergies Allergy/AdvReac Type Severity Reaction Status Date / Time No Known Allergies Allergy Unverified 11/04/22 06:52 Procedures Performed Operation Date: 11/04/22 08:35 Actual Procedures p Cineradiography w/Routine Exam - Sahil Cervantes MD, PhD p Cath, Coronaries ONLY (no LV) - Sahil Cervantes MD, PhD p Aspiration/PCI w/MELVIN for Stemi - Sahil Cervantes MD, PhD s Drug Eluting Stent SGl Vessel - Sahil Cervantes MD, PhD s Fraction Flow [place] SGL Ves - Sahil Cervantes MD, PhD Ordered Studies 11/04/22 08:37 CL Cath Imgs for PACS use only Stat Hospital Course (1) Acute [place]: Patient presents to the hospital on account of chest pain/pressure Initial EKGs did not show any changes however the third EKG showed elevated of ST in inferior leads. He was emergently taken to the cardiac cath and subsequently stented x2 LAD and RCA. 2D echo did not show any evidence of wma, EF, 55-60% Appreciate cardiology Patient does not have a PCP, this has been arranged Continue ASA, Metoprolol, statin, Brillinta, will need TERESA inhibitor during follow up with cardiology (2) Coronary artery disease: Continue Statin,ASA, Metoprolol (3) Atherogenic dyslipidemia: continue stain, ASA, metoprolol (4) Benign essential hypertension: BP under fair control Will need an TERESA inhibitor during follow up with cardiology (5) Marijuana user: Plan Continue hospitalization Full code DVT prophylaxis SCDs Total Time Total Time Spent Total Time Spent (In Minutes): 35 Discharge Plan Discharge Items Patient Disposition: Home - Self-Care Reason For Visit: ACUTE STEMI Discharge Diagnosis: STEMI s/p PCI coronary artery disease dyslipidemia hypertension Condition on Discharge: Good Activity: Per Instructions section Non-emergency contact: Electric Drill Operator Call non-emergency contact if: you have any medication questions, your symptoms worsen, your pain is not controlled, you have a fever, your wound has increased redness and your wound has increased drainage Follow-up/Referrals: Gideon Hughes PA-C [Physician Buffer Operator] - 11/09/22 2:45 am Antony Sylvester DO [Primary Care Provider] - 12/12/22 12:45 pm Diet: Heart Healthy Addtl Attending Provider Instructions: ACTIVITY RECOMMENDATIONS: Excess manipulation of the wrist should be avoided for the next 24-48 hours. * No lifting over 2 pounds (approximately a 1/2 gallon of milk) with the utilized arm for 24 hours. * No strenuous activity such as bowling or tennis for 3 days. * Keep the site of the procedure covered with a bandage for 24 hours. *You may shower the day after the procedure. Do not take a tub bath or submerge the puncture site in water for the next 3 days. *Do not operate any motorized equipment for 3 days. SPECIAL CARE INSTRUCTIONS: The site may be slightly bruised and sore following your procedure. Should any of the following occur, contact the Dr. who performed your procedure. 1. Redness/inflammation, swelling, chills, or fever, or colored drainage at procedure site within 3-7 days after your procedure. 2. Coldness, discoloration, ongoing numbness, severe pain, or swelling. Expect mild tingling of hand and tenderness at the puncture site for up to three days. If this persists beyond three days, or other symptoms develop, notify the Dr. who performed your procedure. BLEEDING: If the procedure site on your wrist begins to bleed, do not panic 1. Place 1 or 2 fingers firmly just slightly above the insertion site to stop the bleeding. You may be able to feel your pulse as you hold pressure. 2. Lift your finger after 5 minutes to see if the bleeding has stopped. 3. Once the bleeding has stopped, gently wipe the wrist area clean with a bandage. * If the bleeding from your wrist does not stop after 10 minutes, or if there is a large amount of bleeding or spurting, call 911 (do not drive yourself to the hospital). SKIN IRRITATION: * You may experience some redness and/or swelling in the area where radiation was administered. If any skin irritation occurs, please contact your family physician. FOLLOW UP VISIT: Keep any scheduled doctor appointments. Addtl Chucking Machine Set Up Operator Provider Instructions: Please avoid NSAIDS Pending Studies at Discharge: No Stand-Alone Forms: My [facility], Smoking Cessation Medications and DC Order Prescriptions: New atorvastatin 40 mg Tablet 40 mg PO QAM Qty: 30 11RF aspirin 81 mg Tablet,Delayed Release (Dr/Ec) 81 mg PO QAM Qty: 90 3RF nitroglycerin [Nitrostat] 0.4 mg Tablet, Sublingual 0.4 mg sublingual Q5M PRN (Reason: chest pain) Qty: 25 3RF metoprolol tartrate 25 mg Tablet 25 mg PO BID Qty: 60 11RF Brilinta 90 mg Tablet 90 mg PO BID Qty: 60 11RF Discontinued ibuprofen [Advil] 200 mg Tablet 400 mg PO Q6H PRN (Reason: Pain) Discharge Orders: Discharge Order (Routine); Ordered 11/06/22 Ordered By: Imani Gracia Admission Data Admit Date/Time: 11/04/22 09:55 Attending Provider: Imani Garcia Admit Provider: Sahil Cervantes Primary Care Provider: Antony Sylvester Coding Level of Care Code 63626 INP/OBS DISCH >30 MIN Diagnoses Acute [place] I21.9 Coronary artery disease I25.10 Atherogenic dyslipidemia E78.5 Benign essential hypertension I10 Marijuana user F12.90 Time Spent (min) 35
--- NOTE | 2022-11-06 22:11 | Electrocardiogram Report ---
Test Reason : Blood Pressure : / mmHG Vent. Rate : 053 BPM Atrial Rate : 053 BPM P-R Int : 132 ms QRS Dur : 088 ms QT Int : 428 ms P-R-T Axes : 029 040 047 degrees QTc Int : 401 ms Sinus bradycardia Otherwise normal ECG When compared with ECG of 04-NOV-2022 08:13, ST elevation is much improved in inferolateral leads Confirmed by Rambo Zavaleta ([id number]) on 11/06/2022 10:11:32 PM Referred By: REFERRED SELF Confirmed By:Rambo Zavaleta
--- NOTE | 2022-11-07 07:06 | Electrocardiogram Report ---
Test Reason : Blood Pressure : / mmHG Vent. Rate : 063 BPM Atrial Rate : 063 BPM P-R Int : 144 ms QRS Dur : 084 ms QT Int : 430 ms P-R-T Axes : 023 021 033 degrees QTc Int : 440 ms Normal sinus rhythm Normal ECG When compared with ECG of 04-NOV-2022 10:04, No significant change was found Confirmed by Rambo Zavaleta ([id number]) on 11/07/2022 7:06:19 AM Referred By: REFERRED SELF Confirmed By:Rambo Zavaleta
== END 2022-11-06 16:05 | disposition home or self-care (01) | DRG 247 ==
LOC: ED 06:03 → CC 08:45 → SUATTDRO 09:55 → 1E 09:55
PROC: CLB.CCO (~2022-11-04)